=== PATIENT | male | born 1985 | race American Indian/Alaskan Native ===

== ENCOUNTER 2021-11-18 16:52 | Emergency (ER) | payer SELFPAY ==
--- NOTE | 2021-11-18 17:17 | Emergency Department Report ---
ED Lower Extremity HPI - General Stated Complaint: RT FOOT POSSIBLY BROKE Time Seen by Provider: 11/18/21 17:17 Source: patient Mode of arrival: Ambulatory Limitations: No Limitations - History of Present Illness Initial Comments: 36 YO COMES TO ER SP MECHANICAL FALL THIS AM CO R FOOT PAIN. HE MISSED A STEP. WALKING WITH A LIMP. NEUROVASC INTACT Complaint: foot injury, fall -: Sudden Injury: Foot: Right Improves With: immobilization Worsens With: movement Context: fall ED Review of Systems ROS: Stated complaint: RT FOOT POSSIBLY BROKE Other details as noted in HPI Comment: All other systems reviewed and negative ED Past Medical Hx - Past Medical History Previous Medical History?: No - Surgical History Past Surgical History?: No - Family History Family history: no significant - Social History Smoking Status: Never Smoker Substance Use Type: Alcohol ED Physical Exam - General Limitations: No Limitations General appearance: alert, in no apparent distress - Head Head exam: Present: atraumatic, normocephalic - Eye Eye exam: Present: normal appearance - ENT ENT exam: Present: mucous membranes moist - Neck Neck exam: Present: normal inspection - Respiratory Respiratory exam: Present: normal lung sounds bilaterally. Absent: respiratory distress - Cardiovascular Cardiovascular Exam: Present: regular rate, normal rhythm. Absent: systolic murmur, diastolic murmur, rubs, gallop - GI/Abdominal GI/Abdominal exam: Present: soft, normal bowel sounds - Rectal Rectal exam: Present: deferred - Extremities Exam Extremities exam: Present: normal inspection - Expanded Lower Extremity Exam Right Knee exam: Present: normal inspection Lower Leg exam: Present: normal inspection Ankle exam: Present: normal inspection Foot/Toe exam: Present: tenderness, swelling Neuro vascular tendon exam: Present: no vascular compromise - Back Exam Back exam: Present: normal inspection - Neurological Exam Neurological exam: Present: alert, oriented X3 - Psychiatric Psychiatric exam: Present: normal affect, normal mood - Skin Skin exam: Present: warm, dry, intact, normal color. Absent: rash ED Lower Extremity MDM - Medical Decision Making XRAY ORDERED TO ER FOR EVAL Critical care attestation.: If time is entered above; I have spent that time in minutes in the direct care of this critically ill patient, excluding procedure time. ED Disposition Clinical Impression: Fall Disposition: 30 STILL A PATIENT Is pt being admited?: No Does the pt Need Aspirin: No Condition: Stable
[2021-11-18 17:19] VITALS: BP 128/86
--- NOTE | 2021-11-18 17:56 | XRay Report ---
Right foot-3 views INDICATION: PAIN SP FALL. COMPARISON: None available. IMPRESSION: No acute osseous abnormality. Normal alignment. No significant DJD. Mild swelling alonso g the lateral aspect of the forefoot and midfoot. Signer Name: Anupam Escobar MD Signed: 11/18/2021 5:51 PM Workstation Name: [id number]
[2021-11-18] MEDS ORDERED: oxyCODONE /ACETAMINOPHEN 5-325MG TAB PO ONE (22:02)
[2021-11-18] MEDS ORDERED: IBUPROFEN 600 MG TAB PO ONE (22:02)
--- NOTE | 2021-11-18 22:10 | Emergency Department Report ---
ED Lower Extremity HPI - General Chief Complaint: Extremity Injury, Lower Stated Complaint: RT FOOT POSSIBLY BROKE Time Seen by Provider: 11/18/21 17:17 Source: patient Mode of arrival: Ambulatory Limitations: No Limitations - History of Present Illness Initial Comments: Patient is a 36-year-old -[place]ian male with no past medical history presents to the ED with complaint of acute onset persistent right foot pain after he tripped while walking down the stairs, twisted his right foot and fell down at the base of the stairs about 12 hours ago. Patient states that he has not been able to bear weight much on the right foot due to worsening pain. Patient denies head or neck injuries, back pain, chest pain, shortness of breath, seizures, dizziness, syncope, numbness and tingling or weakness of lower extremities bilaterally or change in vision. MD Complaint: foot injury (RIGHT FOOT PAIN), other (Tripped down the stairs) -: Sudden, hour(s) (12) Injury: Foot: Right (pain, swelling) Type of Injury: blunt, eversion Place: home Severity: severe Severity scale (0 -10): 8 Improves With: immobilization Worsens With: movement Context: fall, walking Associated Symptoms: snap/pop sensation, swelling, able to partially bear weight. denies: numbness, tingling, unable to bear weight, ambulatory - Related Data Previous Rx's Medication Instructions Recorded Last Taken Type Ibuprofen [Motrin] 800 mg PO Q8HR PRN #30 tablet 11/18/21 Unknown Rx methOCARBAMOL [Robaxin TAB] 750 mg PO Q12H PRN #20 tab 11/18/21 Unknown Rx Allergies Allergy/AdvReac Type Severity Reaction Status Date / Time No Known Allergies Allergy Verified 11/18/21 17:19 ED Review of Systems ROS: Stated complaint: RT FOOT POSSIBLY BROKE Other details as noted in HPI Constitutional: denies: chills, fever Eyes: denies: eye pain, eye discharge, vision change ENT: denies: ear pain, throat pain Respiratory: denies: cough, shortness of breath, wheezing Cardiovascular: denies: chest pain, palpitations Endocrine: no symptoms reported Gastrointestinal: denies: abdominal pain, nausea, diarrhea Genitourinary: denies: urgency, dysuria, frequency, hematuria, testicular pain, testicular mass Musculoskeletal: joint swelling (left foot), arthralgia (left foot pain). denies: back pain Skin: denies: rash, lesions Neurological: denies: headache, weakness, paresthesias Psychiatric: denies: anxiety, depression Hematological/Lymphatic: denies: easy bleeding, easy bruising ED Past Medical Hx - Past Medical History Previous Medical History?: No - Surgical History Past Surgical History?: No - Social History Smoking Status: Never Smoker Substance Use Type: Alcohol - Medications Home Medications: Home Medications Medication Instructions Recorded Confirmed Last Taken Type Ibuprofen [Motrin] 800 mg PO Q8HR PRN #30 tablet 11/18/21 Unknown Rx methOCARBAMOL [Robaxin TAB] 750 mg PO Q12H PRN #20 tab 11/18/21 Unknown Rx ED Physical Exam - General Limitations: No Limitations General appearance: alert, in no apparent distress - Head Head exam: Present: atraumatic, normocephalic, normal inspection - Eye Eye exam: Present: normal appearance, PERRL, EOMI Pupils: Present: normal accommodation - ENT ENT exam: Present: normal exam, normal orophraynx, mucous membranes moist, TM's normal bilaterally, normal external ear exam - Neck Neck exam: Present: normal inspection, full ROM. Absent: tenderness - Respiratory Respiratory exam: Present: normal lung sounds bilaterally. Absent: respiratory distress, wheezes, rales, chest wall tenderness, accessory muscle use, decreased breath sounds, prolonged expiratory - Cardiovascular Cardiovascular Exam: Present: regular rate, normal rhythm, normal heart sounds. Absent: systolic murmur, diastolic murmur, rubs, gallop - GI/Abdominal GI/Abdominal exam: Present: soft, normal bowel sounds. Absent: tenderness, guarding, rebound, hyperactive bowel sounds, hypoactive bowel sounds, mass - Extremities Exam Extremities exam: Present: normal inspection, tenderness (Palpable right foot tenderness with mild swelling on lateral right foot), normal capillary refill, joint swelling (Mild swelling on the right foot). Absent: full ROM (Limited range of motion of right foot due to pain), pedal edema, calf tenderness - Back Exam Back exam: Present: normal inspection, full ROM. Absent: tenderness, CVA tenderness (R), CVA tenderness (L), muscle spasm, paraspinal tenderness, vertebral tenderness, rash noted - Neurological Exam Neurological exam: Present: alert, oriented X3, normal gait, reflexes normal - Psychiatric Psychiatric exam: Present: normal affect, normal mood - Skin Skin exam: Present: warm, dry, intact, normal color. Absent: rash ED Course Vital Signs 11/18/21 17:16 Temperature 98.9 F Pulse Rate 81 Respiratory 14 Rate Blood Pressure 128/86 O2 Sat by Pulse 98 Oximetry ED Lower Extremity MDM - Radiology Data Radiology results: report reviewed, image reviewed [facility] [address] [place] [address] XRay Report Signed Patient: VINICIO HAYES MR#: [id number] : 1985 Acct:[id number] Age/Sex: 36 / M ADM Date: 11/18/21 Loc: ED Attending Dr: Ordering Physician: CURRY DWYER Date of Service: 11/18/21 Procedure(s): XR foot 3+V RT Accession Number(s): [id number] cc: CURRY DWYER Fluoro Time In Minutes: Right foot-3 views INDICATION: PAIN SP FALL. COMPARISON: None available. IMPRESSION: No acute osseous abnormality. Normal alignment. No significant DJD. Mild swelling along the lateral aspect of the forefoot and midfoot. Signer Name: Anupam Escobar MD Signed: 11/18/2021 5:51 PM Workstation Name: [id number] Transcribed By: FLAVIO Dictated By: Anupam Escobar MD Electronically Authenticated By: Anupam Escobar MD Signed Date/Time: 11/18/211750 DD/ 49 TD/TT: Print - Medical Decision Making This is a 36-year-old -[place] male with no past medical history presents to the ED with complaint of acute onset persistent right foot pain after he tripped while walking down the stairs, twisted his right foot and fell down at the base of the stairs about 12 hours ago. Patient states that he has not been able to bear weight much on the right foot due to worsening pain. In the ED, patient is alert and oriented x3 and is not in any distress. Patient is hemodynamically stable. Patient was treated for pain in the ED. Right foot x- ray showed no acute fractures or subluxations of the right foot. Patient right foot was splinted with postop shoe and Ozzy wrap and the patient fitted with crutches. Patient was discharged home on pain medications and advised to follow-up with his primary care physician in 7 to 10 days for reevaluation or return to the ED immediately if symptoms get worse. - Differential Diagnosis foot fracture; foot sprain; muscle strain; foot contusion Critical care attestation.: If time is entered above; I have spent that time in minutes in the direct care of this critically ill patient, excluding procedure time. ED Disposition Clinical Impression: Sprain of right foot Qualifiers: Encounter type: initial encounter Qualified Code(s): S93.601A - Unspecified sprain of right foot, initial encounter Muscle strain of right foot Qualifiers: Encounter type: initial encounter Qualified Code(s): S96.911A - Strain of unspecified muscle and tendon at ankle and foot level, right foot, initial encounter Disposition: HOME / SELF CARE / HOMELESS Is pt being admited?: No Does the pt Need Aspirin: No Condition: Stable Instructions: Muscle Strain, [id number], Foot Sprain, Elastic Bandage and RICE Therapy Additional Instructions: The right foot x-ray showed no acute fractures or subluxations. Therefore take medications with food, drink plenty of fluids and follow-up with your primary care physician in 7 to 10 days for reevaluation. Return to the ED immediately if symptoms get worse. Prescriptions: Ibuprofen [Motrin] 800 mg PO Q8HR PRN #30 tablet PRN Reason: Pain , Severe (7-10) methOCARBAMOL [Robaxin TAB] 750 mg PO Q12H PRN #20 tab PRN Reason: Muscle Spasm Referrals: [facility] [place] [Provider Group] - 7-10 days Forms: Work/School Release Form(ED) Time of Disposition: 22:13 Print Language: FRISIAN
== END 2021-11-18 22:53 | disposition home or self-care (01) ==
LOC: ED 16:52
DX: S93.601A Unspecified sprain of right foot, initial encounter (principal); S96.911A Strain of unspecified muscle and tendon at ankle and foot level, right foot, initial encounter; F10.20 Alcohol dependence, uncomplicated; X58.XXXA Exposure to other specified factors, initial encounter; Y93.89 Activity, other specified; Y92.89 Other specified places as the place of occurrence of the external cause; Y99.8 Other external cause status
CPT/HCPCS: 99283; 99284